=== PATIENT | female | born 1990 | race Two or more races ===

== ENCOUNTER → 2019-07-25 10:59 | Outpatient (CLI) | payer MEDICAID ==
[2015-07-14 07:30] VITALS: BMI 34.4
[~2019-07-25 10:59] MED LIST: IBUPROFEN600 MG PO; PERCOCET 5-3251 TAB PO; PRENATAL COMPLE1 TAB PO
== END | disposition home or self-care (01) ==
LOC: D.LDO 10:59
PROVIDERS: ATTEND Obstetrics & Gynecology
DX: O26.899 Other specified pregnancy related conditions, unspecified trimester (principal); Z3A.00 Weeks of gestation of pregnancy not specified; J02.9 Acute pharyngitis, unspecified

== ENCOUNTER 2019-10-19 00:11 | Outpatient (CLI) | payer MEDICAID ==
[2015-07-14 07:30] VITALS: BMI 34.4
[2019-10-19 01:13] LABS: APPEARANCE CLEAR (CLEAR); BILIRUBIN NEGATIVE (NEGATIVE); COLOR YELLOW (YELLOW); GLUCOSE NEGATIVE (NEGATIVE); KETONE NEGATIVE (NEGATIVE); NITRITE NEGATIVE (NEGATIVE); PROTEIN 1+ mg/dL (NEGATIVE); UROBILINOGEN NORMAL (NORMAL)
[2019-10-19 01:14] LABS: BACTERIA FEW /hpf (NEGATIVE); EPITHELIAL CELLS 0-5 /hpf (0-5); RED CELLS - URINE 0-5 /hpf (0-5); WHITE CELLS - URINE 0-5 /hpf (NEGATIVE)
== END 2019-10-19 01:55 | disposition home or self-care (01) ==
LOC: D.LDO 00:11
PROVIDERS: ATTEND Obstetrics & Gynecology
DX: O62.9 Abnormality of forces of labor, unspecified (principal); Z3A.38 38 weeks gestation of pregnancy

== ENCOUNTER 2019-10-19 18:42 | Inpatient (IN) | payer MEDICAID ==
[2015-07-14 07:30] VITALS: Wt 108.9 kg
[2019-10-19 19:33] LABS: HEMATOCRIT 35.6 % (36.0-48.0); HEMOGLOBIN 11.6 g/dL (12-16); MCH 26.7 pg (26.0-34.0); MCHC 32.6 g/dL (31.0-37.0); MCV 81.8 fL (80.0-100.0); MEAN PLATELET VOLUME 12.2 fL (7.4-10.4); RBC 4.35 10x6/uL (4.00-5.40); WBC 10.3 10x3/uL (4.8-10.8)
[2019-10-20 00:13] VITALS: BP 122/61; BMI 37.7
--- NOTE | 2019-10-20 01:15 | NUR ---
RECEIVED PT FROM L&D PER W/D WITH REPORT FROM GILBERTO BOLTON. PT IS PARA 2 GRAVITA 2. I EXPLAINED TO PT THAT RN WOULD BE BACK TO DO A FULL ASSESSMENT.
[2019-10-20 01:30] VITALS: BP 121/73
--- NOTE | 2019-10-20 02:00 | NUR ---
PT ASSESSMENT: 29 YO F . HEART SOUNDS WNL WITHOUT MURMUR, FUNDUS FIRM, VSS, HAS VOIDED X 2 SINCE ARRIVAL TO ROOM. SHE STATES LOCHIA IS SMALL-MOD. SHE HAS A VAG LACERATION REPAIRED AFTER DELIVERY. PT IS A SMOKER WITH A PATCH ORDERED. REGULAR DIET ORDERED. PT HAS AN ICE PACK TO HER BERNICE AREA. BLOOD TYPE B+, GBS -, RPR -, DRUG SCREEN -, AND REUBELLA IMMUNE. UP AD ACACIA TO BR. DOES HER OWN BERNICE CARE. SKIN IS WARM AND DRY. PT WAS GIVEN IBUPROFEN WHEN BROUGHT TO ROOM.
--- NOTE | 2019-10-20 03:00 | NUR ---
BACK IN PT ROOM FOR A CHECK. FUNDUS IS FIRM. SHE STATES SHE HAS NO PAIN AT THIS TIME. NO NEEDS AT THIS TIME. PT WAS GIVEN PUDDING AND PEANUT BUTTER AND CRACKERS EARLIER.
--- NOTE | 2019-10-20 04:51 | NUR ---
PT, BABY AND FOB ARE ASLEEP AT THIS TIME. NO C/O.
--- NOTE | 2019-10-20 04:55 | NUR ---
PT DOES NOT HAVE AN IV OR A SALINE LOCK. IV WAS ACCIDENTALLY PULLED OUT IN L&D.
--- NOTE | 2019-10-20 06:00 | NUR ---
PT IS DOING WELL. SHE IS TRYING TO FEED THE BABY NOW. SHE STATES SHE HAS ONLY SLIGHT PAIN AND REFUSES PAIN MEDS AT THIS TIME. FUNDUS FIRM.
[2019-10-20 06:51] LABS: BASOPHILS 0.1 % (0-2); EOSINOPHILS 0.6 % (0-7); HEMATOCRIT 34.2 % (36.0-48.0); HEMOGLOBIN 11.1 g/dL (12-16); IMMATURE GRANULOCYTES 0.3 % (0-5); LYMPHOCYTES 16.5 % (15-50); MCH 26.7 pg (26.0-34.0); MCHC 32.5 g/dL (31.0-37.0); MCV 82.4 fL (80.0-100.0); MONOCYTES 5.4 % (2-11); NEUTROPHILS 77.1 % (40-80); PLATELET COUNT 196 10x3/uL (130-400); RBC 4.15 10x6/uL (4.00-5.40); RDW 15.2 % (11.5-14.5)
[2019-10-20 07:03] LABS: WBC 14.3 10x3/uL (4.8-10.8)
[2019-10-20 07:29] VITALS: BP 114/67
--- NOTE | 2019-10-20 07:36 | NUR ---
SITTING UP IN BED-RESTING WITH EYES CLOSED WHEN ENTERED ROOM. AWAKEBS EASILY. FUNDUS UU/FIRM-SCANT LOCHIA NOTED ON PAD. PT STATES SHE IS GETTING UP AND GOING TO BATHROOM NEEDED.
--- NOTE | 2019-10-20 10:00 | NUR ---
SITTING UP IN BED-INFANT AT BREAST. DENIES NEEDS.
--- NOTE | 2019-10-20 12:28 | NUR ---
DR BLAKE HERE TO SEE PT. - NO NEW ORDERS.
[2019-10-20 13:00] VITALS: BP 112/56
--- NOTE | 2019-10-20 14:00 | NUR ---
BABY IN ARMS. DENIES NEEDS. INSTRUCTED PT TO CALL ME WHEN SHE IS READY FOR SHOWER- PT AGREES.
--- NOTE | 2019-10-20 16:09 | NUR ---
UP TO SHOWER- LINENS CHANGED. TOLERATED WELL.
--- NOTE | 2019-10-20 16:30 | NUR ---
AMBULATING IN HALLWAYS.
--- NOTE | 2019-10-20 16:48 | NUR ---
IN ROOM- STATES FEELS BETTER AFTER SHOWER- DENIES NEEDS.
--- NOTE | 2019-10-20 19:20 | NUR ---
REPORT RECEIVED FROM GILBERTO FOLEY. THIS RN KNOWS PT FROM TAKING CARE OF HER ON WEDNESDAY NIGHT. SHE IS AWAKE AND ALERT HOLDING BABY WITH NO C/O.
[2019-10-20 19:50] VITALS: BP 123/79
--- NOTE | 2019-10-20 19:50 | NUR ---
PT IS SITTING UP IN BED WITH BABY VISITING WITH FRIENDS AND RELATIVES. PT HAS NO C/O PAIN. HEART SOUNDS WNL, BOWEL SOUNDS HEARD IN ALL QUADS. FUNDUS IS FIRM. PT STATES LOCHIA IS SMALL-MEDIUM. PT IS VOIDING WELL. SHE HAS NO NEEDS AT THIS TIME BUT KNOWS TO CALL IF SHE DOES.
--- NOTE | 2019-10-20 21:00 | NUR ---
PT IS RESTING QUIETLY AT THIS TIME. AND BABY ARE SLEEPING. NO C/O OR NEEDS AT THIS TIME.
--- NOTE | 2019-10-20 22:07 | NUR ---
PT IS HOLDING BABY. PT HAS NO C/O OR NEEDS AT THIS TIME. PT IS RESTING WHEN SHE CAN.
--- NOTE | 2019-10-21 01:52 | NUR ---
PT IS SLEEPING AT THIS TIME. AND BABY ALSO SLEEPING. NO C/O OR NEEDS.
--- NOTE | 2019-10-21 01:59 | NUR ---
PT AND FAMILY ARE SLEEPING. NO C/O AND NO NEEDS AT THIS TIME.
--- NOTE | 2019-10-21 04:00 | NUR ---
PT AND FAMILY RESTING QUIETLY. NO C/0, NO NEEDS
--- NOTE | 2019-10-21 06:10 | NUR ---
PT IS FEEDING THE BABY NOW. SHE HAS NO C/O SHE STATES SHE DOES NOT NEED ANYTHING AT THIS TIME.
--- NOTE | 2019-10-21 07:18 | NUR ---
RECEIVED SHIFT REPORT FROM RAJNI PETERSON, RN, PT INFORMED THAT I WILL BE BACK SHORTLY TO DO ASSESSMENT, PT VERBALIZES UNDERSTANDING, DENIES NEEDS AT THIS TIME, INFANT IN OPEN CRIB CART AND FOB AT BEDSIDE
--- NOTE | 2019-10-21 07:30 | NUR ---
DR SOSA ON UNIT, ORDERS RECEIVED TO DISCHARGE PT WITH INFANT
[2019-10-21 07:45] VITALS: BP 124/72
--- NOTE | 2019-10-21 07:45 | NUR ---
ASSESSMENT PER FLOW SHEET, VS OBTAINED, FF, ML, U/2, PT REPORTS FLATUS, NO BM, VOIDING WITH NO DIFFICULTY, AND LITE BLEEDING WITH A FEW SMALL CLOTS, PT DENIES NEEDS OR PAIN AT THIS TIME, BREAKFAST TRAY SERVED, INFANT IN OPEN CRIB CART AND FOB ASLEEP AT BEDSIDE
[2019-10-21 08:10] LABS: RAPID PLASMA REAGIN Non Reactive (Non Reactive)
--- NOTE | 2019-10-21 08:30 | NUR ---
PT AROUSES TO OPENING OF DOOR, DENIES NEEDS OR PAIN, IN OPEN CRIB CART AND FOB ASLEEP AT BEDSIDE
--- NOTE | 2019-10-21 09:40 | NUR ---
PT , DENIES NEEDS OR PAIN AT THIS TIME. FOB AT BEDSIDE
--- NOTE | 2019-10-21 10:33 | NUR ---
PT HOLDING INFANT, DENIES NEEDS OR PAIN, FOB AT BEDSIDE
--- NOTE | 2019-10-21 11:34 | NUR ---
PT , WILL COME BACK TO ADM FLU VACCINE, PT VERBALIZES UNDERSTANDING OF FLU VACCINE, DENIES NEEDS AT THIS TIME
--- NOTE | 2019-10-21 12:02 | NUR ---
PT STILL INFANT, DENIES NEEDS AT THIS TIME, FOB AT BEDSIDE
--- NOTE | 2019-10-21 12:15 | NUR ---
SHIFT REPORT TO HOANG FISH RN
--- NOTE | 2019-10-21 13:10 | NUR ---
THIS RN TO BEDSIDE FOR DISCHARGE TEACHING TO INCLUDE POST WARNING SIGNS, VAGINAL DELIVERY,PP DEPRESSION AND . COPIES OF EDUCATION PROVIDED. PT SIGNS DISCHARGE PAPERS AND COPIES PROVIDED. FLU SHOT ADMINISTERED. PT TOLERATED WELL. PT DOESN'T HAVE A CARSEAT CARRIER, BUT DOES HAVE A CARSEAT ALREADY IN HER CAR. PT DISCHARGED TO HOME AT THIS TIME. PT TO W/C W/INFAN UP IN ARMS. PT TRANSPORTED VIA W/C TO AWAITING CAR. CARSEAT APPEARS TO BE STRAPPED IN APPROPRIATELY. SPOUSE PLACES INFANT IN CARSEAT AND PT PLACES STRAPS ON . INFANT APPEARS TO BE APPROPRIATELY PLACED AND SECURE IN [place] [id number].
== END 2019-10-21 13:30 | disposition home or self-care (01) | DRG 807 ==
LOC: D.LDO 18:42 → D.LD 19:15 → D.WS 19:15 → D.LD 10-20 01:15 → D.WS 10-21 13:30
PROVIDERS: ADMIT Student in an Organized Health Care Education/Training Program; ATTEND Student in an Organized Health Care Education/Training Program
PROC: 10E0XZZ Delivery of Products of Conception, External Approach (ICD-10-PCS; principal; 2019-10-19)
PROC: 0KQM0ZZ Repair Perineum Muscle, Open Approach (ICD-10-PCS; 2019-10-19)
DX: O71.4 Obstetric high vaginal laceration alone (principal); Z37.0 Single live birth; Z3A.38 38 weeks gestation of pregnancy